=== PATIENT | male | born 1945 | race Caucasian/White ===

== ENCOUNTER 2021-06-02 07:44 | Emergency (ER) | payer MEDICARE, BC ==
[2021-06-02 07:59] VITALS: BP 151/100; PULSE 104
--- NOTE | 2021-06-02 08:35 | EDM.PDOC ---
ED HPI GENERAL MEDICAL PROBLEM - General Chief Complaint: Cardiovascular Problem Stated Complaint: FACIAL SWELLING Time Seen by Provider: 06/02/21 08:25 - History of Present Illness INITIAL COMMENTS - FREE TEXT/NARRATIVE: 76-year-old male presents the emergency room with a swollen right lip. Patient awoke this morning and noticed some was right with his upper lip. From the left side near the midline all the way over to the right it is been swollen. He has not had any associated breathing difficulty shortness of breath no problems clearing his secretions. The patient is finishing a course of Macrobid today is his last day on it. Patient has no other complaints at this time he has no chest pain chest pressure. Nursing noticed irregular heartbeat on the monitor and did get a EKG which shows A. fib. The patient does not have a history of A. fib. No chest pain edema dyspnea on exertion he otherwise feels well. - Related Data Allergies Allergy/AdvReac Type Severity Reaction Status Date / Time Sulfa (Sulfonamide Allergy Severe Change Verified 06/02/21 07:59 Antibiotics) Mental Status Home Meds: Home Meds Apixaban [Eliquis] 5 mg PO BID #30 tab.ds.pk 06/02/21 [Rx] Cyclobenzaprine [Flexeril] 10 mg PO TID PRN 06/02/21 [History] Magnesium 200 mg PO DAILY 06/02/21 [History] Tamsulosin HCl [Flomax] 0.4 mg PO DAILY 06/02/21 [History] allopurinoL [Zyloprim] 100 mg PO DAILY 06/02/21 [History] lisinopriL [Lisinopril] 40 mg PO DAILY 06/02/21 [History] nitrofurantoin macrocrystaL [Nitrofurantoin] 100 mg PO BID 06/02/21 [History] Past Medical History - Past Health History Medical/Surgical History: Denies Medical/Surgical History Cardiovascular History: Reports: Hypertension Genitourinary History: Reports: BPH Endocrine/Metabolic History: Reports: Hypomagnesemia - Past Surgical History Neurological Surgical History: Reports: Laminectomy Musculoskeletal Surgical History: Reports: Hip Replacement Social & Family History - Tobacco Use Tobacco Use Status *Q: Never Tobacco User - Caffeine Use Caffeine Use: Reports: Coffee - Recreational Drug Use Recreational Drug Use: No ED ROS GENERAL - Review of Systems Review Of Systems: See Below Constitutional: Denies: Fever, Chills HEENT: Reports: Other (Other than his lip swelling he is doing fine) Respiratory: Reports: No Symptoms Cardiovascular: Reports: No Symptoms Endocrine: Reports: No Symptoms GI/Abdominal: Reports: No Symptoms : Reports: No Symptoms Musculoskeletal: Reports: No Symptoms Skin: Reports: No Symptoms Neurological: Reports: No Symptoms ED EXAM, GENERAL - Physical Exam Exam: See Below Exam Limited By: No Limitations General Appearance: Alert, No Apparent Distress Eye Exam: Bilateral Eye: Normal Inspection Ears: Normal External Exam, Normal Canal, Hearing Grossly Normal, Normal TMs Nose: Normal Inspection, Normal Mucosa, No Blood Throat/Mouth: Normal Oropharynx, Normal Voice, No Airway Compromise, Other (Right upper lip is swollen the patient actually thinks it is improving swelling is mild to moderate. Uvula is normal) Head: Atraumatic, Normocephalic Neck: Normal Inspection, Supple, Non-Tender, Full Range of Motion. No: Lymphadenopathy (L), Lymphadenopathy (R) Respiratory/Chest: No Respiratory Distress, Lungs Clear, Normal Breath Sounds Cardiovascular: Regular Rate, Rhythm, No Edema, No Murmur GI/Abdominal: Normal Bowel Sounds, Soft, Non-Tender Back Exam: Normal Inspection. No: CVA Tenderness (L), CVA Tenderness (R) Extremities: Normal Inspection, No Pedal Edema Neurological: Alert, Oriented, Normal Cognition Skin Exam: Warm, Dry, Intact #1 Interpretation EKG Date: 06/02/21 Rhythm: A-Fib Rate (Beats/Min): 89 (Range 79-101) [place]: RAD-Right [place] Deviation P-Wave: Absent (Flutter activity not excluded but thought less likely) QRS: Normal ST-T: Other QT: Prolonged Comparison: Change From Previous EKG (February 27, 2016 the patient had a PVC with frequent PVCs he was otherwise clearly in sinus rhythm) EKG Interpretation Comments: Abnormal EKG Course - Vital Signs Last Recorded V/S: Last Vital Signs Temp 36.1 C 06/02/21 07:55 Pulse 104 H 06/02/21 07:55 Resp 15 06/02/21 07:55 BP 151/100 H 06/02/21 07:55 Pulse Ox 99 06/02/21 07:55 - Orders/Labs/Meds Orders: Active Orders 24 hr Category Date Time Status EKG 12 Lead [EK] Stat Ther 06/02/21 08:48 Ordered Labs: Laboratory Tests 06/02/21 06/02/21 06/02/21 Range/Units 08:15 08:15 08:15 WBC 8.57 (4.23-9.07) K/mm3 RBC 5.25 (4.63-6.08) M/mm3 Hgb 15.9 (13.7-17.5) gm/dl Hct 47.9 (40.1-51.0) % MCV 91.2 (79.0-92.2) fl MCH 30.3 (25.7-32.2) pg MCHC 33.2 (32.2-35.5) g/dl RDW Std Deviation 51.1 H (35.1-43.9) fL Plt Count 173 (163-337) K/mm3 MPV 10.1 (9.4-12.3) fl Neut % (Auto) 70.1 H (34.0-67.9) % Lymph % (Auto) 16.3 L (21.8-53.1) % Reeves % (Auto) 10.9 (5.3-12.2) % Eos % (Auto) 2.1 (0.8-7.0) Baso % (Auto) 0.2 (0.1-1.2) % Neut # (Auto) 6.01 H (1.78-5.38) K/mm3 Lymph # (Auto) 1.40 (1.32-3.57) K/mm3 Reeves # (Auto) 0.93 H (0.30-0.82) K/mm3 Eos # (Auto) 0.18 (0.04-0.54) K/mm3 Baso # (Auto) 0.02 (0.01-0.08) K/mm3 Manual Slide Review Abnormal smear PT 12.1 H (9.7-12.0) SECONDS INR 1.09 APTT 27.2 (21.7-31.4) SECONDS Sodium 140 (136-145) mEq/L Potassium 4.2 (3.5-5.1) mEq/L Chloride 105 (98-107) mEq/L Carbon Dioxide 25 (21-32) mEq/L Anion Gap 14.2 (5-15) BUN 18 (7-18) mg/dL Creatinine 1.1 (0.7-1.3) mg/dL Est Cr Clr Drug Dosing 58.07 mL/min Estimated GFR (MDRD) > 60 (>60) mL/min BUN/Creatinine Ratio 16.4 (14-18) Glucose 110 H (70-99) mg/dL Calcium 8.7 (8.5-10.1) mg/dL Magnesium 1.9 (1.8-2.4) mg/dL Total Bilirubin 0.3 (0.2-1.0) mg/dL AST 12 L (15-37) U/L ALT 28 (16-63) U/L Alkaline Phosphatase 76 (46-116) U/L Troponin I 0.039 (0.00-0.056) ng/mL Total Protein 6.5 (6.4-8.2) g/dl Albumin 3.2 L (3.4-5.0) g/dl Globulin 3.3 gm/dL Albumin/Globulin Ratio 1.0 (1-2) Urine Color (Yellow) Urine Appearance (Clear) Urine pH (5.0-8.0) Ur Specific [place] (1.005-1.030) Urine Protein (Negative) Urine Glucose (UA) (Negative) Urine Ketones (Negative) Urine Occult Blood (Negative) Urine Nitrite (Negative) Urine Bilirubin (Negative) Urine Urobilinogen (0.2-1.0) Ur Leukocyte Esterase (Negative) 06/02/21 Range/Units 08:36 WBC (4.23-9.07) K/mm3 RBC (4.63-6.08) M/mm3 Hgb (13.7-17.5) gm/dl Hct (40.1-51.0) % MCV (79.0-92.2) fl MCH (25.7-32.2) pg MCHC (32.2-35.5) g/dl RDW Std Deviation (35.1-43.9) fL Plt Count (163-337) K/mm3 MPV (9.4-12.3) fl Neut % (Auto) (34.0-67.9) % Lymph % (Auto) (21.8-53.1) % Reeves % (Auto) (5.3-12.2) % Eos % (Auto) (0.8-7.0) Baso % (Auto) (0.1-1.2) % Neut # (Auto) (1.78-5.38) K/mm3 Lymph # (Auto) (1.32-3.57) K/mm3 Reeves # (Auto) (0.30-0.82) K/mm3 Eos # (Auto) (0.04-0.54) K/mm3 Baso # (Auto) (0.01-0.08) K/mm3 Manual Slide Review PT (9.7-12.0) SECONDS INR APTT (21.7-31.4) SECONDS Sodium (136-145) mEq/L Potassium (3.5-5.1) mEq/L Chloride (98-107) mEq/L Carbon Dioxide (21-32) mEq/L Anion Gap (5-15) BUN (7-18) mg/dL Creatinine (0.7-1.3) mg/dL Est Cr Clr Drug Dosing mL/min Estimated GFR (MDRD) (>60) mL/min BUN/Creatinine Ratio (14-18) Glucose (70-99) mg/dL Calcium (8.5-10.1) mg/dL Magnesium (1.8-2.4) mg/dL Total Bilirubin (0.2-1.0) mg/dL AST (15-37) U/L ALT (16-63) U/L Alkaline Phosphatase (46-116) U/L Troponin I (0.00-0.056) ng/mL Total Protein (6.4-8.2) g/dl Albumin (3.4-5.0) g/dl Globulin gm/dL Albumin/Globulin Ratio (1-2) Urine Color Yellow (Yellow) Urine Appearance Clear (Clear) Urine pH 6.0 (5.0-8.0) Ur Specific [place] 1.015 (1.005-1.030) Urine Protein Negative (Negative) Urine Glucose (UA) Negative (Negative) Urine Ketones Negative (Negative) Urine Occult Blood Negative (Negative) Urine Nitrite Negative (Negative) Urine Bilirubin Negative (Negative) Urine Urobilinogen 0.2 (0.2-1.0) Ur Leukocyte Esterase Negative (Negative) Meds: Medications Discontinued Medications Generic Name Dose Route Start Last Admin Trade Name Freq PRN Reason Stop Dose Admin Diphenhydramine HCl 25 mg 06/02/21 08:36 06/02/21 08:59 Diphenhydramine 50 Mg/Ml Sdv IVPUSH 06/02/21 08:37 25 mg ONETIME ONE Administration Famotidine 40 mg 06/02/21 08:36 06/02/21 08:57 Famotidine 20 Mg/2 Ml Sdv IVPUSH 06/02/21 08:37 40 mg ONETIME ONE Administration - Re-Assessments/Exams Free Text/Narrative Re-Assessment/Exam: 06/02/21 12:30 The patient was given Pepcid and Benadryl his lipids come down nicely still has a little ways to go. Did check some labs with this apparent new onset A. fib and these were unrevealing troponin is in the normal range. Chest x-ray shows some cardiomegaly. I did discuss situation with Britney Werner. And advised the A. fib I did review urine culture and sensitivity which showed no growth we will stop the Macrobid at this point in case this is the offending agent. For the A. fib he is rate controlled the patient is basically asymptomatic with it but we will start Eliquis 5 mg twice daily. With regards to the atrial fibrillation I did discuss this with the patient and informed him of the risks of A. fib with regards to stroke. I did offer to start him on anticoagulation. And he would like to try this understanding that there is a increased bleeding risk with that. Departure - Departure Time of Disposition: 12:33 Disposition: Home, Self-Care 01 Clinical Impression: Allergic reaction, Atrial fibrillation, new onset Prescriptions: Apixaban [Eliquis] 5 mg PO BID #30 tab.ds.pk Referrals: Anais Guidry PA-C [Primary Care Provider] - Forms: ED Department Discharge Additional Instructions: Return to the emergency room with any questions problems or worsening symptoms. Follow-up in the clinic for recheck on Wednesday or . You have been started on Eliquis, this is a blood thinner to help prevent stroke with your atrial fibrillation, this is the irregular heartbeat. The prescription for this has been sent to the [facility] by Gina. For your swollen lip and when she did take famotidine, or Pepcid 20 mg twice daily until the swelling is down and then decrease it to once daily for 10 days. You may also use Benadryl 25 mg every 6 hours but only if needed. Sepsis Event Note (ED) - Evaluation Sepsis Screening Result: No Definite Risk - Focused Exam Vital Signs: Vital Signs Temp Pulse Resp BP Pulse Ox 06/02/21 07:55 36.1 C 104 H 15 151/100 H 99 - My Orders Last 24 Hours: My Active Orders 06/02/21 08:48 EKG 12 Lead [EK] Stat - Assessment/Plan Last 24 Hours: My Active Orders 06/02/21 08:48 EKG 12 Lead [EK] Stat
[2021-06-02] MEDS ORDERED: diphenhydrAMINE 50 MG/ML SDV IVPUSH ONE (08:36)
[2021-06-02] MEDS ORDERED: Famotidine 20 MG/2 ML SDV IVPUSH ONE (08:36)
--- NOTE | 2021-06-02 09:40 | CR ---
Chest: Portable view of the chest was obtained. Comparison: Prior chest x-ray of 12/11/12. Heart is enlarged. Upper mediastinum is normal. Slight atelectasis is seen within the left lung base. Lungs otherwise are clear. Bony structure shows degenerative spurring within the spine. Impression: 1. Heart is enlarged. 2. Mild left basilar atelectasis. 3. Nothing acute is otherwise seen. Diagnostic code #3
== END 2021-06-02 12:50 | disposition home or self-care (01) ==
LOC: JD.ED 07:44
DX: T78.40XA Allergy, unspecified, initial encounter (principal); I48.91 Unspecified atrial fibrillation; I10 Essential (primary) hypertension; N40.0 Benign prostatic hyperplasia without lower urinary tract symptoms; R94.31 Abnormal electrocardiogram [ECG] [EKG]; Z88.2 Allergy status to sulfonamides; Z79.01 Long term (current) use of anticoagulants; Z79.899 Other long term (current) drug therapy
CPT/HCPCS: 36415; 71045; 71045-26; 80053; 81003; 83735; 84484; 85025; 85610; 85730; 93005; 93010; 96374; 96375; 99285; 99285-25; J1200; J3490

== ENCOUNTER 2022-04-16 07:42 | Day surgery (SDC) | payer MEDICARE, BC ==
[~2022-04-16 07:42] MED LIST: Lidocaine 1%/Sod Bicarbonate in NS 8.4% 1 ML Syringe IDERM PRN; Sodium Chloride 0.9% 10 ML Syringe FLUSH PRN; Sodium Chloride 0.9% 10 ML Syringe FLUSH SCH
[2022-04-16] MEDS: Lactated Ringers 1,000 ML IV SCH (08:20)
[2022-04-16] MEDS ORDERED: Propofol 200 MG/20 ML SDV ONE (08:38)
[2022-04-16] MEDS ORDERED: Lidocaine 1% 4 ML ONE (08:38)
[2022-04-16] MEDS ORDERED: fentaNYL 100 MCG/2 ML SDV ONE (08:38)
[2022-04-16 09:54] VITALS: BP 133/84; PULSE 78
== END 2022-04-16 09:52 | disposition home or self-care (01) ==
LOC: JD.SDS 07:42
PROVIDERS: ATTEND Surgery
DX: Z12.11 Encounter for screening for malignant neoplasm of colon (principal); K64.4 Residual hemorrhoidal skin tags; R00.1 Bradycardia, unspecified; I48.91 Unspecified atrial fibrillation; I10 Essential (primary) hypertension; N40.0 Benign prostatic hyperplasia without lower urinary tract symptoms; M10.9 Gout, unspecified; E83.42 Hypomagnesemia; E55.9 Vitamin D deficiency, unspecified; Z86.73 Personal history of transient ischemic attack (TIA), and cerebral infarction without residual deficits; Z86.16 Personal history of COVID-19; Z88.2 Allergy status to sulfonamides; Z79.899 Other long term (current) drug therapy; Z98.890 Other specified postprocedural states
CPT/HCPCS: J2704; J3010; J7120

== ENCOUNTER 2023-10-07 08:32 | Emergency (ER) | payer MEDICARE ==
[2023-10-07 08:43] VITALS: PULSE 69
[2023-10-07] MEDS: Meclizine 25 MG Tab PO ONE (09:28)
[2023-10-07 10:56] VITALS: BP 139/77
== END 2023-10-07 10:45 | disposition home or self-care (01) ==
LOC: JD.ED 08:32
DX: H81.399 Other peripheral vertigo, unspecified ear (principal); I10 Essential (primary) hypertension; I48.91 Unspecified atrial fibrillation; Z86.16 Personal history of COVID-19; Z79.01 Long term (current) use of anticoagulants; Z79.899 Other long term (current) drug therapy; Z88.2 Allergy status to sulfonamides
CPT/HCPCS: 99283; A9270

== ENCOUNTER 2025-03-21 06:45 | Emergency (ER) | payer MEDICARE ==
[2025-03-21] MEDS ORDERED: Naloxone 0.4 MG/ML SDV IVPUSH PRN (06:53)
[2025-03-21] MEDS: fentaNYL 100 MCG/2 ML SDV IVPUSH STA (06:58)
[2025-03-21] MEDS: Ondansetron 4 MG/2 ML SDV IVPUSH ONE ×2 (06:59→07:36)
[2025-03-21] MEDS ORDERED: Sodium Chloride 0.9% 10 ML Syringe FLUSH PRN (07:03)
[2025-03-21 07:28] LABS: BASOPHILS ABSOLUTE AUTO 0.0 K/mm3 (0.0-0.2); BASOPHILS PERCENT AUTO 0.5 % (0.0-1.0); EOSINOPHILS ABSOLUTE AUTO 0.4 K/mm3 (0.0-0.4); EOSINOPHILS PERCENT AUTO 5.3 % (0.0-6.0); IMMATURE GRAN ABSOLUTE AUTO 0.02 K/mm3 (0.00-0.05); IMMATURE GRAN PERCENT AUTO 0.2 % (0.0-0.4); LYMPHOCYTES ABSOLUTE AUTO 2.5 K/mm3 (1.0-4.8); LYMPHOCYTES PERCENT AUTO 30.8 % (24.0-44.0); MEAN PLATELET VOLUME 11.8 fl (9.4-12.4); MONOCYTES ABSOLUTE AUTO 0.9 K/mm3 (0.0-0.8); MONOCYTES PERCENT AUTO 11.2 % (0.0-8.0); NEUTROPHILS ABSOLUTE AUTO 4.3 K/mm3 (1.8-7.7); NEUTROPHILS PERCENT AUTO 52.0 % (41.0-71.0); NRBC ABSOLUTE 0.00 (0.00-0.02); NRBC PERCENT 0.0 % (0.0-0.2); PLATELET COUNT,PLT 105 K/mm3 (150-400); RED BLOOD CELL COUNT 5.04 M/mm3 (4.52-5.90); WHITE BLOOD CELL COUNT,WBC 8.19 K/mm3 (3.9-11.3)
[2025-03-21] MEDS: Sodium Chloride 0.9% 10 ML Syringe FLUSH ONE (07:29)
[2025-03-21] MEDS: Iopamidol 755 Mg/ML 100 ML Bottle IVPUSH ONE (07:29)
[2025-03-21 07:45] LABS: A/G RATIO 1.1 (1-2); ALANINE AMINOTRANSFERASE,ALT 26.0 U/L (16-63); ASPARTATE AMNIOTRANSFERASE,AST 22.0 U/L (15-37); BILIRUBIN TOTAL 0.9 mg/dL (0.2-1.0); BLOOD UREA NITROGEN,BUN 17.0 mg/dL (7-18); CARBON DIOXIDE,CO2 28.0 mEq/L (21-32); CHLORIDE,CL 106.0 mEq/L (98-107); CREATINE KINASE,CK 67.0 U/L (39-308); CREATININE 1.2 mg/dL (0.7-1.3); EST CRCL DRUG DOSING (CG) 49.85 mL/min; ESTIMATED GFR 61.0 mL/min (>60); GLUCOSE RANDOM 117.0 mg/dL (70-99); POTASSIUM,K 3.4 mEq/L (3.5-5.1); PROTEIN TOTAL,TP 6.8 g/dl (6.4-8.2); SODIUM,NA 142.0 mEq/L (136-145); TROPONIN I HIGH SENSITIVITY 57.0 pg/mL (<=76)
[2025-03-21 07:48] LABS: INR 1.37
[2025-03-21] MEDS: LORazepam 2 MG/ML SDV IVPUSH STA (09:29)
[2025-03-21 11:24] LABS: APPEARANCE,URINE CLEAR (Clear); GLUCOSE,URINE NEGATIVE (Negative); OCCULT BLOOD,URINE 1+ (Negative)
[2025-03-21 11:40] LABS: SQUAMOUS EPITHELIAL CELLS,UR 0-5 /hpf (0-5)
[2025-03-21 12:27] VITALS: BP 133/89; PULSE 76
== END 2025-03-21 12:35 | disposition home or self-care (01) ==
LOC: JD.ED 06:45
DX: R10.84 Generalized abdominal pain (principal); E87.6 Hypokalemia; E83.42 Hypomagnesemia; L29.9 Pruritus, unspecified; I48.11 Longstanding persistent atrial fibrillation; I10 Essential (primary) hypertension; Z88.2 Allergy status to sulfonamides; Z79.01 Long term (current) use of anticoagulants; Z79.899 Other long term (current) drug therapy
CPT/HCPCS: 36415; 71275; 74175; 80053; 81001; 82550; 83690; 83735; 84484; 85025; 85610; 93005; 96365; 96367; 96368; 96375; 99284; J1171; J2060; J2405; J3010; J3475; J3480; J7030; Q9967; 93010

== ENCOUNTER 2025-04-12 08:13 | Day surgery (SDC) | payer MEDICARE ==
[~2025-04-12 08:13] MED LIST changes: +Dexamethasone 4 MG/ML 5 ML MDV ONE; +Esmolol 100 MG/10 ML SDV ONE; +Glycopyrrolate 0.2 MG/ML 2 ML SDV ONE; +Iopamidol 612 MG/ML 30 ML SDV ONE; +Ketamine HCL/NACL, ISO-OSM 50 MG/5 ML Syringe ONE; +Lactated Ringers 1,000 ML IV SCH; -Lidocaine 1%/Sod Bicarbonate in NS 8.4% 1 ML Syringe IDERM PRN; +Midazolam 1 MG/ML 2 ML SDV ONE; +Ondansetron 4 MG/2 ML SDV IVPUSH PRN; -Sodium Chloride 0.9% 10 ML Syringe FLUSH SCH; +dexmedeTOMIDine HCl 200 MCG/2 ML SDV ONE; +fentaNYL 100 MCG/2 ML SDV IVPUSH PRN; +fentaNYL 250 MCG/5 ML SDV ONE; +propofoL 1,000 MG/100 ML 100 ML ONE
[2025-04-12] MEDS: Lactated Ringers 1,000 ML IV SCH (08:45)
[2025-04-12] MEDS ORDERED: Sodium Chloride 0.9% 10 ML Syringe FLUSH SCH ×2 (09:00→21:00)
[2025-04-12] MEDS: EPINEPHrine 1 MG/ML SDV ONE (09:17)
[2025-04-12] MEDS ORDERED: Sodium Chloride 0.9% 10 ML Syringe FLUSH PRN (09:26)
[2025-04-12] MEDS ORDERED: Lactated Ringers 1,000 ML ONE (10:29)
[2025-04-12 13:45] VITALS: BP 119/68; PULSE 65
== END 2025-04-12 14:17 | disposition home or self-care (01) ==
LOC: JD.SDS 08:13
PROVIDERS: ATTEND Surgery
DX: K80.00 Calculus of gallbladder with acute cholecystitis without obstruction (principal); I48.91 Unspecified atrial fibrillation; F41.9 Anxiety disorder, unspecified; I10 Essential (primary) hypertension; E78.00 Pure hypercholesterolemia, unspecified; E11.9 Type 2 diabetes mellitus without complications; Z88.2 Allergy status to sulfonamides; Z88.8 Allergy status to other drugs, medicaments and biological substances; Z79.01 Long term (current) use of anticoagulants; Z79.899 Other long term (current) drug therapy
CPT/HCPCS: 47562; 88304; J0169; J0665; J0690; J1100; J1596; J1805; J2003; J2250; J2704; J3010; J7120; 00790; 99100; J3490; Q9967

== ENCOUNTER 2025-06-04 12:10 | Emergency (ER) | payer MEDICARE ==
[2025-06-04 14:50] VITALS: BP 165/93; PULSE 89
== END 2025-06-04 14:55 | disposition home or self-care (01) ==
LOC: JD.ED 12:10
DX: I11.0 Hypertensive heart disease with heart failure (principal); I50.9 Heart failure, unspecified; Z88.2 Allergy status to sulfonamides; Z88.8 Allergy status to other drugs, medicaments and biological substances; Z79.899 Other long term (current) drug therapy; Z86.16 Personal history of COVID-19
CPT/HCPCS: 71046; 71046-26; 99283; 99284